=== PATIENT | female | born 1980 | race American Indian/Alaskan Native ===

== ENCOUNTER 2017-07-15 19:39 | Emergency (ER) | payer SELFPAY ==
[2017-07-15 21:19] LABS: Bilirubin,Urine NEG (Negative); Blood,Urine NEG (Negative); Color,Urine Yellow (Yellow); Mucus,Urine FEW /HPF; Nitrite,Urine NEG (Negative); Protein,Urine <15 mg/dL mg/dL (Negative); Urobilinogen,Urine < 2.0 mg/dL (<2.0); WBC,Urine < 1.0 /HPF (0.0-6.0)
[2017-07-15 21:20] LABS: HCG Qualitative,Urine Negative (Negative)
[2017-07-16] MEDS ORDERED: MOTRIN PO ONE (00:27)
[2017-07-16] MEDS ORDERED: DECADRON IM ONE (00:28)
--- NOTE | 2017-07-16 00:40 | Emergency Department Report ---
ED ENT HPI - General Chief complaint: Headache Stated complaint: SINUS PRESSURE/HEADACHES Time Seen by Provider: 07/15/17 23:48 Source: patient Mode of arrival: Ambulatory Limitations: No Limitations - History of Present Illness Initial comments: 36-year-old female past medical history presents with complaint of 2 days of sore throat tender cervical adenopathy and headache. Patient is awake alert and oriented 3 fully lucid. Denies chest pain or dyspnea. No trismus and no drooling noted. Patient speaking in full sentences. MD complaint: sore throat Onset/Timin -: days(s) Severity: moderate Quality: aching Consistency: constant Improves with: none Worsens with: none Context- Dental: history of dental caries Associated Symptoms: other (sinus congestion) - Related Data Previous Rx's Medication Instructions Recorded Last Taken Type Cetirizine HCl [ZyrTEC] 10 mg PO QDAY #30 capsule 07/16/17 Unknown Rx Clindamycin [Clindamycin CAP] 300 mg PO Q6H #28 capsule 07/16/17 Unknown Rx Dextromethorphan/Benzocaine 1 each PO Q4H PRN #1 box 07/16/17 Unknown Rx [Cepacol Sorethroat-Cough Олег] Fluticasone [Flonase] 1 spray NS QDAY PRN #1 bottle 07/16/17 Unknown Rx Ibuprofen [Motrin] 800 mg PO Q8HR PRN #30 tablet 07/16/17 Unknown Rx Allergies Allergy/AdvReac Type Severity Reaction Status Date / Time Penicillins Allergy Rash Verified 07/15/17 20:14 wheat Allergy Unknown Verified 07/15/17 20:14 ED Dental HPI - General Chief complaint: Headache Stated complaint: SINUS PRESSURE/HEADACHES Time Seen by Provider: 07/15/17 23:48 Source: patient Mode of arrival: Ambulatory Limitations: No Limitations - Related Data Previous Rx's Medication Instructions Recorded Last Taken Type Cetirizine HCl [ZyrTEC] 10 mg PO QDAY #30 capsule 07/16/17 Unknown Rx Clindamycin [Clindamycin CAP] 300 mg PO Q6H #28 capsule 07/16/17 Unknown Rx Dextromethorphan/Benzocaine 1 each PO Q4H PRN #1 box 07/16/17 Unknown Rx [Cepacol Sorethroat-Cough Олег] Fluticasone [Flonase] 1 spray NS QDAY PRN #1 bottle 07/16/17 Unknown Rx Ibuprofen [Motrin] 800 mg PO Q8HR PRN #30 tablet 07/16/17 Unknown Rx Allergies Allergy/AdvReac Type Severity Reaction Status Date / Time Penicillins Allergy Rash Verified 07/15/17 20:14 wheat Allergy Unknown Verified 07/15/17 20:14 ED Review of Systems ROS: Stated complaint: SINUS PRESSURE/HEADACHES Other details as noted in HPI Constitutional: denies: chills, fever Eyes: denies: eye pain, eye discharge, vision change ENT: denies: ear pain, throat pain Respiratory: denies: cough, shortness of breath, wheezing Cardiovascular: denies: chest pain, palpitations Endocrine: no symptoms reported Gastrointestinal: denies: abdominal pain, nausea, diarrhea Genitourinary: denies: urgency, dysuria, discharge Musculoskeletal: denies: back pain, joint swelling, arthralgia Skin: denies: rash, lesions Neurological: denies: headache, weakness, paresthesias Psychiatric: denies: anxiety, depression Hematological/Lymphatic: denies: easy bleeding, easy bruising ED Past Medical Hx - Past Medical History Previous Medical History?: Yes Additional medical history: hypothyroid - Surgical History Past Surgical History?: Yes Additional Surgical History: c sec/2, B/L Breast reduction, oral - Social History Smoking Status: Never Smoker Substance Use Type: None - Medications Home Medications: Home Medications Medication Instructions Recorded Confirmed Last Taken Type Cetirizine HCl [ZyrTEC] 10 mg PO QDAY #30 capsule 07/16/17 Unknown Rx Clindamycin [Clindamycin CAP] 300 mg PO Q6H #28 capsule 07/16/17 Unknown Rx Dextromethorphan/Benzocaine 1 each PO Q4H PRN #1 box 07/16/17 Unknown Rx [Cepacol Sorethroat-Cough Олег] Fluticasone [Flonase] 1 spray NS QDAY PRN #1 bottle 07/16/17 Unknown Rx Ibuprofen [Motrin] 800 mg PO Q8HR PRN #30 tablet 07/16/17 Unknown Rx ED Physical Exam - General Limitations: No Limitations General appearance: alert, in no apparent distress - Head Head exam: Present: atraumatic, normocephalic - Eye Eye exam: Present: normal appearance, PERRL, EOMI - ENT ENT exam: Present: mucous membranes moist - Expanded ENT Exam Expanded Throat exam: Positive: tonsillar erythema - Neck Neck exam: Present: normal inspection, lymphadenopathy (tender anterior cervical adenopathy) - Respiratory Respiratory exam: Present: normal lung sounds bilaterally (lungs clear to auscultation bilaterally). Absent: respiratory distress - Cardiovascular Cardiovascular Exam: Present: regular rate, normal rhythm. Absent: systolic murmur, diastolic murmur, rubs, gallop - GI/Abdominal GI/Abdominal exam: Present: soft, normal bowel sounds - Extremities Exam Extremities exam: Present: normal inspection - Back Exam Back exam: Present: normal inspection - Neurological Exam Neurological exam: Present: alert, oriented X3 - Psychiatric Psychiatric exam: Present: normal affect, normal mood - Skin Skin exam: Present: warm, dry, intact, normal color. Absent: rash ED Course Vital Signs 07/15/17 07/16/17 07/16/17 20:14 00:42 01:51 Temperature 98.8 F 98.7 F Pulse Rate 99 H 88 Respiratory 18 18 18 Rate Blood Pressure 144/88 Blood Pressure 144/92 [Left] O2 Sat by Pulse 100 97 Oximetry ED Medical Decision Making - Medical Decision Making A/P: Sinusitis, viral syndrome, cervical adenopathy 1-empiric treatment for pharyngitis with clindamycin as patient is penicillin allergic and this will also cover sinusitis 2-Flonase, azelastine nasal spray, Zyrtec 3-Motrin 800 mg when necessary, throat lozenges 4- strep swab negative, CT head unremarkable. Critical care attestation.: If time is entered above; I have spent that time in minutes in the direct care of this critically ill patient, excluding procedure time. ED Disposition Clinical Impression: Headache Qualifiers: Headache type: other headache syndrome Qualified Code(s): G44.89 - Other headache syndrome Sinusitis Qualifiers: Sinusitis location: frontal Chronicity: acute Recurrence: non-recurrent Qualified Code(s): J01.10 - Acute frontal sinusitis, unspecified Disposition: - TO HOME OR SELFCARE Is pt being admited?: No Does the pt Need Aspirin: No Condition: Stable Instructions: Sinusitis (ED), Lymphadenopathy (ED), Acute Headache (ED) Prescriptions: Cetirizine HCl [ZyrTEC] 10 mg PO QDAY #30 capsule Clindamycin [Clindamycin CAP] 300 mg PO Q6H #28 capsule Dextromethorphan/Benzocaine [Cepacol Sorethroat-Cough Олег] 1 each PO Q4H PRN #1 box PRN Reason: Sore Throat Fluticasone [Flonase] 1 spray NS QDAY PRN #1 bottle PRN Reason: Congestion Ibuprofen [Motrin] 800 mg PO Q8HR PRN #30 tablet PRN Reason: Pain Referrals: EMIL THIBODEAUX MD [Primary Care Provider] - 3-5 Days [facility] [Outside] - 3-5 Days [facility] [Outside] - 3-5 Days Forms: Accompanied Note, Work/School Release Form(ED) Time of Disposition: 01:55
[2017-07-16] MEDS ORDERED: ZOFRAN ODT PO ONE (01:02)
--- NOTE | 2017-07-16 01:39 | Cat Scan Report ---
FINAL REPORT EXAM: CT HEAD/BRAIN WO CON HISTORY: worsening headache COMPARISON: None available. TECHNIQUE: Axial images obtained skull base through vertex. FINDINGS: No acute intracranial hemorrhage, midline shift or pathologic extra axial fluid collection. Ventricles and cisterns are normal in size and configuration for the patient's age. Rea-white differentiation preserved. Calvarium grossly intact. Minimal mucosal thickening the paranasal sinuses. Mastoid air cells are clear. IMPRESSION: No grossly acute intracranial abnormality.
[2017-07-16 01:52] VITALS: BP 144/92
== END 2017-07-16 02:22 | disposition home or self-care (01) ==
LOC: ED 19:39
DX: J01.10 Acute frontal sinusitis, unspecified (principal); G44.89 Other headache syndrome
CPT/HCPCS: 70450; 81001; 81025; 87116; 87430; 96372; 99284; J1100; Q0162